=== PATIENT | male | born 1970 | race Caucasian/White ===

== ENCOUNTER 2021-07-21 09:31 | Day surgery (SDC) | payer BC ==
[2021-07-18 10:20] VITALS: BMI 44.1
[~2021-07-21 09:31] MED LIST: HYDROmorphone 0.5 MG/0.5 ML SYRINGE IVP PRN
[2021-07-21] MEDS: SODIUM CHLORIDE 0.9% 1,000 ML IV SCH (10:00)
[2021-07-21 10:07] LABS: Glucose,Whole Blood 167 mg/dL (75-99)
[2021-07-21 10:26] LABS: Basophils % (A) 1 %; Eosinophils # (A) 0.3 k/uL (0-0.7); Eosinophils % (A) 4 %; HCT 47.4 % (39.0-53.0); HGB 16.9 gm/dL (13.0-17.5); Hyperchromasia Slight; Lymphocytes # (A) 1.6 k/uL (1.0-4.8); Lymphocytes % (A) 24 %; MCH 32.2 pg (25.0-35.0); MCHC 35.7 g/dL (31.0-37.0); Monocytes # (A) 0.4 k/uL (0-1.0); Monocytes % (A) 6 %; Neutrophils # (A) 4.4 k/uL (1.3-7.7); Neutrophils % (A) 64 %; Platelet Count 178 k/uL (150-450); RBC 5.26 m/uL (4.30-5.90); RDW 12.6 % (11.5-15.5); WBC 6.8 k/uL (3.8-10.6)
[2021-07-21 10:35] LABS: African American GFR (CKD) >90 (>60 ml/min/1.73 sqM); Anion Gap 11 mmol/L; Blood Urea Nitrogen 13 mg/dL (9-20); Carbon Dioxide 23 mmol/L (22-30); Chloride 104 mmol/L (98-107); Glucose 177 mg/dL (74-99); Non-African American GFR(CKD) >90 (>60 ml/min/1.73 sqM); Potassium 4.4 mmol/L (3.5-5.1); Sodium 138 mmol/L (137-145)
[2021-07-21] MEDS ORDERED: SODIUM CHLORIDE 0.9% 1,000 ML IV ONE (12:09)
[2021-07-21] MEDS ORDERED: LIDOCAINE 1% INJ 10MG/ML (20 ML MDV) ONE ×2 (12:44→12:45)
[2021-07-21] MEDS ORDERED: WATER FOR INJECTION, STERILE 10 ML VIAL IV ONE (12:45)
[2021-07-21] MEDS ORDERED: PROPOFOL 10 MG/ML 20 ML VIAL IV ONE (12:45)
[2021-07-21] MEDS ORDERED: ISOPROTERENOL 250 MCG/1.25 ML SYR IV ONE (12:45)
[2021-07-21] MEDS ORDERED: .fentaNYL (PF) 50 MCG/ML 2 ML AMP ONE (12:45)
[2021-07-21] MEDS ORDERED: ePHEDrine 50 MG/ML 1 ML AMP ONE (12:45)
[2021-07-21] MEDS ORDERED: HEPARIN SODIUM,PORCINE 10,000 UNIT/ML 1 ML VIAL ONE (12:45)
[2021-07-21] MEDS ORDERED: PHENYLEPHRINE-0.9% NACL SYG 1,000 MCG/10 ML SYRINGE ONE (12:45)
[2021-07-21] MEDS ORDERED: SUCCINYLCHOLINE CHLORIDE VIAL 200 MG/10 ML VIAL IV ONE (12:45)
[2021-07-21] MEDS ORDERED: MIDAZOLAM 2 MG/2 ML VIAL ONE (12:45)
[2021-07-21] MEDS ORDERED: HEPARIN SOD,PORK IN 0.45% NACL 25,000 UNIT in 0.45% NACL 1 250ML.BAG IV ONE (13:21)
[2021-07-21] MEDS ORDERED: LIDOCAINE 1% INJ 10MG/ML (20 ML MDV) SQ ONE (13:38)
[2021-07-21] MEDS ORDERED: IOPAMIDOL-370 100ML BTL INJ ONE (15:03)
--- NOTE | 2021-07-21 15:25 | P.HPCAR ---
History of Present Illness This is Dr. Juarez dictating an H/P on this patient The patient was interviewed and examined IMPRESSION / ASSESSMENT: Paroxysmal atrial fibrillation on flecainide History of atrial flutter status post ablation with 10 years back Increasing frequency of PVCs on flecainide and therefore the dose was reduced Hypertension Dyslipidemia Type 2 diabetes Morbid obesity PLAN: Proceed with PVI Thereafter reduce the dose of flecainide to 15 g twice daily Continue metoprolol Continue ELIQUIS Continue losartan and Crestor HPI Patient started complaining of palpitations and on examination his rhythm was found to be irregular Holter monitor revealed increase in the frequency of PVCs The PVC frequency also increased during exercise He denies any fever chills cough syncope or any other symptoms in the last one to 2 weeks ROS: No fever chills or rigors, no cough, phlegm or expectoration, no nausea, vomiting or diarrhea, no hematuria, dysuria, no musculoskeletal complaints, no strokes or seizures, no skin lesions. EXAMINATION: 136/84 mmHg pulse rate in the 70s, afebrile 97.7F normal pulse ox on room air Breath sounds are reduced bilaterally with no rhonchi no crackles Normal heart sounds Normal S1 normal S2 Abdomen soft nontender Extremities warm no edema REVIEW OF LABS, ECG & MEDICAL DATA Normal white count Normal hemoglobin Sodium 138 potassium 4.4 BUN 13 creatinine 0.56 Coronavirus PCR not detected Physical Exam Vitals: Vital Signs Temp Pulse Resp BP Pulse Ox 07/21/21 10:08 97.7 F 71 16 136/84 96 Intake and Output 07/21/21 07/21/21 07/21/21 06:59 14:59 22:59 Intake Total 1017 Balance 1017 Intake: IV 1017 Other: Weight 136.4 kg Past Medical History Past Medical History: Atrial Fibrillation, Diabetes Mellitus, Hyperlipidemia, Hypertension History of Any Multi-Drug Resistant Organisms: None Reported Past Surgical History: Cardiac Ablation, Hernia Repair Additional Past Surgical History / Comment(s): kidney stones Past Anesthesia/Blood Transfusion Reactions: No Reported Reaction Smoking Status: Never smoker Physical Examination Vital Signs Temp Pulse Resp BP Pulse Ox 07/21/21 10:08 97.7 F 71 16 136/84 96 Intake and Output 07/21/21 07/21/21 07/21/21 06:59 14:59 22:59 Intake Total 1017 Balance 1017 Intake: IV 1017 Other: Weight 136.4 kg Results 07/21/21 10:05 07/21/21 10:05 CBC 07/21/21 Range/Units 10:05 WBC 6.8 (3.8-10.6) k/uL RBC 5.26 (4.30-5.90) m/uL Hgb 16.9 (13.0-17.5) gm/dL Hct 47.4 (39.0-53.0) % Plt Count 178 (150-450) k/uL Comprehensive Metabolic Panel 07/21/21 Range/Units 10:05 Sodium 138 (137-145) mmol/L Potassium 4.4 (3.5-5.1) mmol/L Chloride 104 (98-107) mmol/L Carbon Dioxide 23 (22-30) mmol/L BUN 13 (9-20) mg/dL Creatinine 0.56 L (0.66-1.25) mg/dL Glucose 177 H (74-99) mg/dL Calcium 9.0 (8.4-10.2) mg/dL Current Medications Generic Name Dose Route Start Last Admin Trade Name Freq PRN Reason Stop Dose Admin Hydromorphone HCl 0.5 mg 07/21/21 07:00 Hydromorphone 0.5 Mg/0.5 Ml Syringe IVP 07/21/21 23:00 Q5M PRN Phase I - Pain Control Lactated Ringer's 1,000 mls @ 20 mls/hr 07/20/21 17:00 Lactated Ringers IV 08/19/21 17:01 .Q24H PADMINI Sodium Chloride 1,000 mls @ 20 mls/hr 07/21/21 05:49 07/21/21 10:00 Saline 0.9% IV 08/20/21 05:50 1,000 mls .Q24H PADMIIN Administration Intake and Output 07/21/21 07/21/21 07/21/21 06:59 14:59 22:59 Intake Total 1017 Balance 1017 Intake: IV 1017 Other: Weight 136.4 kg Patient Weight 07/22/21 06:59 Weight 136.4 kg 07/21/21 10:05 07/21/21 10:05
--- NOTE | 2021-07-21 15:26 | P.PRLE ---
RE: Binh Perez Dear Ervin Mr. gaines underwent successful pulmonary vein isolation for management of paroxysmal atrial fibrillation He was on flecainide for suppressive therapy However we're noted recent increase in his PVC burden but his stress test did not show any evidence of ischemia Therefore today he underwent pulmonary vein isolation successfully without any acute complications I'm reducing the dose of flecainide to 50 mg twice daily He will continue ELIQUIS as well as all his other cardiac medications Thank you for entrusting me with the care of the patient Warm regards Sincerely Mack Juarez
[2021-07-21] MEDS ORDERED: ACETAMINOPHEN TAB 325 MG TAB PO PRN (15:28)
--- NOTE | 2021-07-21 15:37 | P.EPPROC ---
- EP Procedure Note Electrophysiology Procedure Note: PROCEDURE A. fib ablation DIAGNOSIS Atrial fibrillation, symptomatic, refractory to therapy Paroxysmal Increase in PVC blood in on flecainide RESULT No left atrial appendage mass seen on intracardiac echo Elevated RA and LA pressures Successful A. fib ablation/pulmonary vein isolation of all veins using cryo- ablation Complete entrance block in all 4 veins confirmed No evidence for phrenic nerve injury Esophageal deflection YES, right-sided esophagus PROCEDURE DETAILS Patient was brought to the EP lab in a fasting state. Written informed consent was obtained prior to the procedure. Procedure performed under general anesthesia After initial muscle relaxant use, muscle relaxants were not given thereafter in order to assess phrenic nerve during procedure. Patient prepped and draped as per protocol Full cryo-set up with standard preparation of the cryoablation tools done. Femo ral Venous access obtained on the right and left groins Venous and arterial Sheaths placed. Diagnostic catheters for the high right atrium, phrenic nerve stimulation and pacing, His bundle, RV and coronary sinus placed Intracardiac echo catheter placed. Long sheath placed in the right atrium Left and right transseptal catheterization performed under intracardiac echo guidance. Intravenous heparin with aCT above 300 Later, catheter positioning and balloon positioning in the left atrium, under intracardiac echo guidance Diagnostic EP study with Drug infusion Coronary sinus pacing and recording Sinus cycle length 888 ms, OR interval 176 ms, QRS 100 ms and QT interval 388 ms AH 82 and HV 45 ms Sinus node recovery times at 600, 504 100 ms were 1198, 1198 and 1123 ms Corresponding corrected sinus node recovery times abnormal AV node Wenckebach block 310 ms Wide open Isuprel infused after cryoablation of the pulmonary veins No inducible atrial fibrillation on Isuprel Transseptal catheterization performed RA pressure 22/17/20 LA pressure 29/16/22 Transseptal catheterization performed with standard sheath. The cryoablation sheath was then placed with an over the wire exchange without any acute complications. All 4 pulmonary veins were isolated in the following sequence: Left superior followed by left inferior followed by right superior followed by right inferior The cryo-ablation balloon was placed at the os of each vein 1.5 mL of IV dye was injected to confirm an occluded vein Goal during cryoablation was to achieve complete occlusion of the pulmonary vein, achieve -30 degrees C at 30 seconds and achieve -40 degrees C at 60 seconds and a time to effect of less than 60-90 seconds, . If not the balloon was repositioned to obtain this result After completion of Cryoblation with durations from 180-240 seconds, entrance block was confirmed with the Attain circular catheter in a roving fashion around the antrum of the pulmonary veins Phrenic nerve pacing was performed from the SVC, right innominate vein area and diaphragm voltage was monitored. Diaphragmatic contractions were also monitored manually for strength of contraction. Parameter goals for each cryo freeze Complete occlusion of the appropriate vein -30 degrees C by 30 seconds -40 degrees C by 60 seconds Minimum between minus 40-55 degrees C Thaw time greater than 10 seconds Balloon visualized by intracardiac echo The esophagus was intubated. Esophageal Temperature monitoring with a CIRCA catheter formed. Esophageal deflection for hypothermia of the esophagus below 30 degrees C Left superior pulmonary vein, Complete isolation, entrance block Left inferior pulmonary vein Complete isolation, entrance block Right superior pulmonary vein, during phrenic nerve pacing, upper and lower branches Complete isolation, entrance block Right inferior pulmonary vein, during phrenic nerve pacing Complete isolation, entrance block At the end of the procedure the Achieve catheter was once again used to check for entrance block Phrenic nerve stimulation was performed to confirm diaphragmatic stimulation the end of the procedure Cine fluoroscopy was performed at the very end of the procedure to confirm movement of both diaphragms with inspiration and expiration At the end of the procedure the patient was extubated Heparin was reversed Venous sheaths were removed and hemostasis assured PROCEDURES PERFORMED Diagnostic EP study CS pacing and recording Left and right transseptal catheterization Catheter the mapping of the tachycardia (NOT 3D mapping) Intracardiac echocardiography Pulmonary vein isolation with transseptal and comprehensive EPS, [id number] Drug Infusion [id number]
[2021-07-21 16:03] LABS: Glucose,Whole Blood 172 mg/dL (75-99)
[2021-07-21] MEDS: ACETAMINOPHEN IV (For NPO) 1,000 MG in EMPTY BAG 1 BAG IVPB ONE ×2 (16:29→16:50)
[2021-07-21] MEDS ORDERED: ACETAMINOPHEN IV (For NPO) 1,000 MG/100 ML VIAL IVPB ONE (16:29)
[2021-07-21] MEDS: LACTATED RINGERS 1,000 ML IV SCH ×2 (17:47→17:48)
[2021-07-21] MEDS: METOPROLOL TARTRATE 25 MG TAB PO SCH (19:19)
[2021-07-21] MEDS: APIXABAN 5 MG TAB PO SCH (19:19)
[2021-07-21] MEDS: FLECAINIDE 50 MG TAB PO SCH (19:19)
[2021-07-21 20:12] LABS: Glucose,Whole Blood 146 mg/dL (75-99)
[2021-07-21] MEDS ORDERED: INVOKANA 300 MG PO SCH (21:00)
[2021-07-21] MEDS ORDERED: ATORVASTATIN 20 MG TAB PO SCH (21:00)
[2021-07-22 00:30] VITALS: PULSE 80
[2021-07-22] MEDS: SODIUM CHLORIDE 0.9% 1,000 ML IV SCH (04:02)
[2021-07-22 07:45] LABS: Glucose,Whole Blood 211 mg/dL (75-99)
[2021-07-22] MEDS: METOPROLOL TARTRATE 25 MG TAB PO SCH (07:47)
[2021-07-22] MEDS: APIXABAN 5 MG TAB PO SCH (07:48)
[2021-07-22] MEDS: FLECAINIDE 50 MG TAB PO SCH (07:51)
[2021-07-22 08:28] VITALS: BP 148/84; RESP 16; TEMP 98.3
[2021-07-22] MEDS ORDERED: LOSARTAN 50 MG TAB PO SCH (09:00)
--- NOTE | 2021-07-22 09:55 | P.DS ---
Providers Attending physician: Mack Juarez Primary care physician: Bettye Quiles MD Hospital Course: INTERVAL HISTORY: The patient is a 51-year-old male with a past medical history of paroxysmal atrial fibrillation, atrial flutter status post ablation, hypertension, dyslipidemia, type 2 diabetes, admitted to the hospital by Dr. Juarez for a planned A. fib ablation/pulmonary vein isolation of all veins using cryo-ablation for management of paroxysmal atrial fibrillation on 021. Patient seen and examined at bedside, no acute distress. Bilateral groin sites clean, dry, 2+ peripheral pulses. He did have frequent PVCs on flecainide and his Flecainide was reduced to 50mg BID. Telemetry reviewed, patient in sinus mechanism, no PVCs noted. During the procedure increased atherosclerosis noted without any occlusive disease. PHYSICAL EXAMINATION: Blood pressure 148/84, heart rate 80, respirations 16, temp 98.3. Patient is 96% on room air. HEART: S1, S2 normal. LUNGS: Clear to auscultation. NECK: Supple. ABDOMEN: Soft. EXTREMITIES: 2+ peripheral pulses. LAB DATA: CBC unremarkable, sodium 138, potassium 4.4, BUN 13, serum creatinine 0.5, COVID 19 PCR negative. Hemoglobin A1c and lipid panel pending FINAL IMPRESSION: 1. Paroxysmal atrial fibrillation s/p successful A. fib ablation/pulmonary vein isolation of all veins using cryo-ablation on 07/21/21 2. History of atrial flutter status post ablation 3. Hypertension. 4. Dyslipidemia. 5. Type 2 diabetes. 6. Atherosclerosis noted without any occlusive disease during ablation procedure. PLAN: Patient may be able to be discharged home today. Decrease flecainide to 50mg BID, increase atorvastatin to 20mg daily, continue other home medications. We will make him a follow-up appointment with Dr. Juarez in 2 weeks. Plan - Discharge Summary Discharge Rx Participant: No New Discharge Prescriptions: New Flecainide [Tambocor] 50 mg PO Q12HR #90 tablet Continue Multivitamins, Thera [Multivitamin (formulary)] 1 tab PO DAILY Metoprolol Tartrate [Lopressor] 25 mg PO BID Eliquis (Unkn Dose) 5 mg PO BID Losartan (Unkn. Dose) 50 tab PO DAILY Canagliflozin [Invokana] 300 mg PO HS Semaglutide [Ozempic] 0.25 mg SQ WEEKLY Changed Rosuvastatin [Crestor] 20 mg PO HS 30 Days #60 tab Discontinued Flecainide [Tambocor] 100 mg PO Q12HR Discharge Medication List Eliquis (Unkn Dose) 5 mg PO BID 07/18/21 [History] Losartan (Unkn. Dose) 50 tab PO DAILY 07/18/21 [History] Multivitamins, Thera [Multivitamin (formulary)] 1 tab PO DAILY 07/18/21 [History] Canagliflozin [Invokana] 300 mg PO HS 07/21/21 [History] Flecainide [Tambocor] 50 mg PO Q12HR #90 tablet 07/21/21 [Rx] Metoprolol Tartrate [Lopressor] 25 mg PO BID 07/21/21 [History] Semaglutide [Ozempic] 0.25 mg SQ WEEKLY 07/21/21 [History] Rosuvastatin [Crestor] 20 mg PO HS 30 Days #60 tab 07/22/21 [Rx] Follow up Appointment(s)/Referral(s): Mack Juarez MD [STAFF PHYSICIAN] - 2 Weeks (Follow-up with Dr. Juarez/Mercedes Rojas in 1-2 weeks Office will call with appointment time and date.) Activity/Diet/Wound Care/Special Instructions: Post EP study - Ablation instructions 1. Keep access sites dry for 2 days. 2. No heavy lifting or straining for 2 days. 3. Avoid bending the hips repeatedly for 2 days. 4. You may go up and down stairs slowly Call if the following is noted 1. Bleeding, increasing swelling or pain at the access sites. 2. Increasing chest discomfort, especially upon taking a deep breath. 3. Increasing shortness of breath, at rest or with exertion. 4. Undue cough / phlegm 5. Difficulty or pain while swallowing. 6. Pain or change in color in the extremities. 7. Fever, chills, rigors. 8. Increasing headache or neurologic symptoms. 9. Dizziness, fainting, palpitations Reduce flecainide to 50 mg twice daily Continue ELIQUIS and continue other cardiac medications as before Follow Dr. Juarez/Mercedes Rojas in 1-2 weeks May go to work on Wednesday
[2021-07-22 10:13] LABS: HDL Cholesterol 35.8 mg/dL (40.00-60.00)
[2021-07-22 10:27] LABS: Chol/HDL Ratio 4.47 Ratio; LDL Cholesterol,Direct Reflex 75.1 mg/dL (0.00-129.00)
[2021-07-28] MEDS ORDERED: NON FORMULARY DRUG (Semaglutide [Ozempic] 0.25 MG/0.2 ML Each) SQ SCH (09:00)
== END 2021-07-22 10:45 | disposition home or self-care (01) ==
LOC: CATHEP 09:31 → 6NMEDSUR 15:42 → CATHEP 07-22 10:45
PROVIDERS: ATTEND Internal Medicine Clinical Cardiac Electrophysiology
DX: I48.0 Paroxysmal atrial fibrillation (principal); I48.92 Unspecified atrial flutter; I49.3 Ventricular premature depolarization; E78.5 Hyperlipidemia, unspecified; I10 Essential (primary) hypertension; E11.9 Type 2 diabetes mellitus without complications; E66.01 Morbid (severe) obesity due to excess calories; K21.9 Gastro-esophageal reflux disease without esophagitis; Z79.01 Long term (current) use of anticoagulants; Z79.899 Other long term (current) drug therapy; Z20.822 Contact with and (suspected) exposure to COVID-19
CPT/HCPCS: 93623; 93662; 93609; 93656; 80048; 80061; 85025; 83721; 83036; 87635; C1894 ×2; C1769 ×5; C1760; C1730 ×2; C1759; C1893; C1733; C1766; J2250; J0330; J1644 ×2; J2001; J3010; J0131; J2370; J2704; Q9967